=== PATIENT | female | born 1980 | race Caucasian/White ===

== ENCOUNTER 2017-02-07 21:54 | Emergency (ER) | payer MEDICAID ==
[~2017-02-07] VITALS: Ht 162.6 cm; Wt 82.0 kg
[2017-02-07 23:30] LABS: BASOPHILS % 0.6 % (0.0-2.0); EOSINOPHILS % 0.3 % (0.0-5.0); HEMATOCRIT. 38.9 % (36.0-48.0); HEMOGLOBIN. 12.5 g/dL (12.0-16.0); LYMPHOCYTES % 11.3 % (20.0-50.0); MEAN CORPUSCULAR HEMOGLOBIN 28.1 pg (28.0-32.0); MEAN CORPUSCULAR VOLUME 87.3 fL (81.0-99.0); MEAN PLATELET VOLUME 7.2 fl (7.4-10.4); MONOCYTES % 5.7 % (2.0-8.0); NEUTROPHILS % 82.1 % (40.0-76.0); PLATELET 467 x1000/uL (130-400); RED BLOOD CELL COUNT 4.45 mill/uL (4.2-5.4); RED CELL DISTRIBUTION WIDTH 17.9 % (11.6-14.6)
[2017-02-07] MEDS ORDERED: HALOPERIDOL LACTATE 5MG/ML VIAL IM STA (23:31)
[2017-02-07] MEDS ORDERED: LORAZEPAM 2MG/ML CPJ IM STA (23:31)
[2017-02-07 23:41] LABS: CARBON DIOXIDE 27 mEq/L (21-32); CHLORIDE 108 mEq/L (98-107); ETHANOL BLOOD < 10 mg/dL
[2017-02-07 23:49] LABS: AMMONIA 30 uMol/L (<32)
[2017-02-08] MEDS ORDERED: ONDANSETRON HCL 4MG/2ML VIAL IV ONE (00:15)
[2017-02-08] MEDS ORDERED: DIPHENHYDRAMINE 50MG/ML VIAL IV ONE (00:15)
[2017-02-08] MEDS ORDERED: SODIUM CHLORIDE 0.9% 1,000 ML IV ONE ×2 (00:15→05:45)
[2017-02-08] MEDS ORDERED: LORAZEPAM 2MG/ML CPJ IV ONE ×2 (02:15→06:00)
[2017-02-08] MEDS ORDERED: MORPHINE SULFATE 4 MG/ML CPJ (NOT FOR IM USE) IV ONE (06:00)
[2017-02-08 07:56] LABS: KETONES URINE NEGATIVE (NEGATIVE); LEUKOCYTE ESTERASE URINE 2+ (NEGATIVE); NITRITE URINE NEGATIVE (NEGATIVE); OCCULT BLOOD URINE 3+ (NEGATIVE); PROTEIN URINE 1+ (NEGATIVE); SPECIFIC GRAVITY URINE 1.015 (1.005-1.030)
[2017-02-08 07:58] LABS: CLARITY URINE CLOUDY (CLEAR); COLOR URINE AMBER (YELLOW)
[2017-02-08 08:14] LABS: *AMPHETAMINES SCREEN URINE NEGATIVE (NEGATIVE); *BARBITURATES SCREEN URINE NEGATIVE (NEGATIVE); *COCAINE SCREEN URINE NEGATIVE (NEGATIVE); METHADONE URINE SCREEN NEGATIVE (NEGATIVE); OPIATES URINE SCREEN NEGATIVE (NEGATIVE); PHENCYCLIDINE URINE SCREEN NEGATIVE (NEGATIVE)
[2017-02-08 08:15] LABS: *BENZODIAZEPINES SCREEN URINE PRESUMTIVE POSITIVE (NEGATIVE); CANNABINOID URINE SCREEN PRESUMTIVE POSITIVE (NEGATIVE)
[2017-02-08 11:00] VITALS: BP 126/85
== END 2017-02-08 11:24 | disposition home or self-care (01) ==
LOC: ER 21:54
DX: R41.82 Altered mental status, unspecified (principal); E87.6 Hypokalemia; D72.829 Elevated white blood cell count, unspecified; S50.311A Abrasion of right elbow, initial encounter; E66.9 Obesity, unspecified; Z68.31 Body mass index [BMI] 31.0-31.9, adult; Z78.1 Physical restraint status; Z53.29 Procedure and treatment not carried out because of patient's decision for other reasons; X58.XXXA Exposure to other specified factors, initial encounter; Y93.89 Activity, other specified; Y92.018 Other place in single-family (private) house as the place of occurrence of the external cause
CPT/HCPCS: 36415; 70450; 71045; 80053; 80305; 80307; 80329; 81001; 82140; 82962; 84702; 85025; 87040; 96361; 96372; 96374; 96375; 96376; 99285; G0482; J1200; J1630; J2060; J2405; J7030; Z7610

== ENCOUNTER 2017-08-13 16:15 | Inpatient (IN) | payer MEDICAID ==
[~2017-08-13] VITALS: Ht 157.5 cm; Wt 117.5 kg
[2017-08-13] MEDS ORDERED: ONDANSETRON HCL 4MG/2ML VIAL IV STA (19:27)
[2017-08-13] MEDS ORDERED: FAMOTIDINE 20MG/2ML VIAL IV STA (19:27)
[2017-08-13] MEDS ORDERED: SODIUM CHLORIDE 0.9% 1,000 ML IV ONE (19:27)
[2017-08-13] MEDS ORDERED: MORPHINE SULFATE 4 MG/ML CPJ (NOT FOR IM USE) IV STA (19:27)
[2017-08-13 20:23] LABS: HEMATOCRIT. 31.1 % (36.0-48.0); LYMPHOCYTES % 24.3 % (20.0-50.0); MEAN CORPUSCULAR HEMOGLOBIN 26.4 pg (28.0-32.0); MEAN CORPUSCULAR VOLUME 82.2 fL (81.0-99.0); MONOCYTES % 10.9 % (2.0-8.0); NEUTROPHILS % 62.8 % (40.0-76.0); PLATELET 413 x1000/uL (130-400); RED BLOOD CELL COUNT 3.78 mill/uL (4.2-5.4); RED CELL DISTRIBUTION WIDTH 18.1 % (11.6-14.6)
[2017-08-13 20:27] LABS: CHLORIDE 105 mEq/L (98-107)
[2017-08-13 20:29] LABS: INR 1.4; PROTHROMBIN TIME 14.7 sec (9.4-11.6)
[2017-08-13 20:31] LABS: ETHANOL BLOOD < 10 mg/dL
[2017-08-13 20:32] LABS: CLARITY URINE CLOUDY (CLEAR); COLOR URINE YELLOW (YELLOW); KETONES URINE TRACE (NEGATIVE); LEUKOCYTE ESTERASE URINE 2+ (NEGATIVE); NITRITE URINE NEGATIVE (NEGATIVE); OCCULT BLOOD URINE 1+ (NEGATIVE); PROTEIN URINE 1+ (NEGATIVE); UROBILINOGEN URINE 0.2 E.U./dL (0.2-1.0)
[2017-08-13] MEDS ORDERED: PIPERACILLIN/TAZ 3.375G PREMIX 50 ML IV ONE (20:45)
[2017-08-13] MEDS ORDERED: SODIUM CHLORIDE 0.9% 1000ML BAG (SEPSIS BOLUS) IV ONE (20:45)
[2017-08-13 20:47] LABS: *AMPHETAMINES SCREEN URINE NEGATIVE (NEGATIVE); *BARBITURATES SCREEN URINE NEGATIVE (NEGATIVE); *BENZODIAZEPINES SCREEN URINE NEGATIVE (NEGATIVE); *COCAINE SCREEN URINE NEGATIVE (NEGATIVE); METHADONE URINE SCREEN NEGATIVE (NEGATIVE); PHENCYCLIDINE URINE SCREEN NEGATIVE (NEGATIVE)
[2017-08-13 20:48] LABS: CANNABINOID URINE SCREEN NEGATIVE (NEGATIVE)
[2017-08-13 20:51] LABS: OPIATES URINE SCREEN PRESUMTIVE POSITIVE (NEGATIVE)
[2017-08-13 20:52] LABS: HCG SCREEN NEGATIVE
[2017-08-14] VITALS (7 sets, daily range): BP systolic 81–113; BP diastolic 33–55
[2017-08-14] MEDS: HYDROCODONE/ACETAMINOPHEN 5/325MG TABLET PO PRN (02:54)
[2017-08-14] MEDS ORDERED: LORAZEPAM 0.5MG TABLET PO PRN (10:30)
[2017-08-14] MEDS ORDERED: DIPHENHYDRAMINE 50MG/ML VIAL IV PRN (10:30)
[2017-08-14] MEDS ORDERED: GUAIFENESIN 200MG/10ML SUGAR FREE UDC PO PRN (10:30)
[2017-08-14] MEDS ORDERED: CLONIDINE 0.1MG TABLET PO PRN (10:30)
[2017-08-14] MEDS ORDERED: ACETAMINOPHEN 650MG/20.3ML UDC GT PRN (10:30)
[2017-08-14] MEDS ORDERED: ACETAMINOPHEN 325MG TABLET PO PRN (10:30)
[2017-08-14] MEDS ORDERED: NA PHOS,M-B/NA PHOS,DI-BA ENEMA 118ML PR PRN (10:30)
[2017-08-14] MEDS ORDERED: MAGNESIUM/ALUMINUM HYDROXIDE/SIMETHICONE 30ML UDC PO PRN (10:30)
[2017-08-14] MEDS ORDERED: ACETAMINOPHEN 650MG SUPP PR PRN (10:30)
[2017-08-14] MEDS ORDERED: DOCUSATE SODIUM 100MG CAPSULE PO PRN (10:30)
[2017-08-14] MEDS ORDERED: ONDANSETRON HCL 4MG/2ML VIAL IV PRN (10:30)
[2017-08-14] MEDS ORDERED: POTASSIUM CHLORIDE 20MEQ/PACKET PO NR (11:00)
[2017-08-14] MEDS ORDERED: SODIUM CHLORIDE 0.9% 500 ML IV NR (11:00)
[2017-08-14 12:12] LABS: BG BASE EXCESS -8.7 mmol/L (-2.0-2.0); BG CARBOXYHEMOGLOBIN 0.3 % (0.5-1.5); BG DEOXYHEMOGLOBIN 7.7 % (0.0-5.0); BG FRACTION INSPIRED OXYGEN 21; BG HCO3 ACT 16.2 mmol/L (22.0-26.0); BG METHEMOGLOBIN 0.3 % (0.0-1.5); BG OXYGEN SATURATION 92.3 % (92.0-98.5); BG OXYHEMOGLOBIN 91.7 % (94.0-97.0); BG PCO2 31.5 mmHg (35.0-45.0); BG PO2 71.5 mmHg (75.0-100.0); BG SAMPLE SITE RIGHT BRACHIAL; BG TOTAL HEMOGLOBIN 9.5 g/dL (12.0-18.0); BG VENT MODE ROOM AIR
[2017-08-14] MEDS ORDERED: VANCOMYCIN 2,000 MG in DEXT 5% WATER 500 ML IV NR (12:30)
[2017-08-14] MEDS: PIPERACILLIN/TAZ 3.375G PREMIX 50 ML IV SCH ×2 (13:06→21:19)
[2017-08-14] MEDS: IPRATROPIUM/ALBUTEROL 0.5-3(2.5)MG/3ML NEB INH SCH ×2 (14:21→20:49)
[2017-08-14] MEDS: HYDROCODONE/ACETAMINOPHEN 10/325MG TABLET PO PRN ×2 (15:14→21:12)
[2017-08-14 16:08] LABS: AMMONIA 39 uMol/L (<32)
[2017-08-14 16:12] LABS: CREATINE KINASE 63 IU/L (26-192)
[2017-08-14 16:14] LABS: CREATINE KINASE MB FRACTION 1.4 ng/mL (0.5-3.6)
[2017-08-15] VITALS (13 sets, daily range): BP systolic 96–135; BP diastolic 44–70
[2017-08-15] MEDS: IPRATROPIUM/ALBUTEROL 0.5-3(2.5)MG/3ML NEB INH SCH ×4 (02:50→21:54)
[2017-08-15] MEDS: HYDROCODONE/ACETAMINOPHEN 10/325MG TABLET PO PRN ×3 (05:12→21:09)
[2017-08-15] MEDS: PIPERACILLIN/TAZ 3.375G PREMIX 50 ML IV SCH ×3 (05:25→21:10)
[2017-08-15 06:26] LABS: HEMATOCRIT. 27.9 % (36.0-48.0); HEMOGLOBIN. 9.2 g/dL (12.0-16.0); MEAN CORPUSCULAR HEMOGLOBIN 27.1 pg (28.0-32.0); MEAN CORPUSCULAR VOLUME 82.3 fL (81.0-99.0); MEAN PLATELET VOLUME 8.2 fl (7.4-10.4); PLATELET 354 x1000/uL (130-400); RED CELL DISTRIBUTION WIDTH 18.8 % (11.6-14.6)
[2017-08-15 06:33] LABS: CHLORIDE 109 mEq/L (98-107)
[2017-08-15 06:42] LABS: PHOSPHORUS 4.8 mg/dL (2.5-4.9)
[2017-08-15 06:43] LABS: LDL CHOLESTEROL 19 mg/dL (5-100)
[2017-08-15 06:45] LABS: HDL CHOLESTEROL 10 mg/dL (40-59)
[2017-08-15 06:47] LABS: T4 FREE 0.97 ng/dL (0.76-1.46)
[2017-08-15 12:54] LABS: PLATELET ESTIMATE NORMAL
[2017-08-15] MEDS ORDERED: VANCOMYCIN 1250MG in DEXTROSE 5% WATER 250ML IV SCH (13:00)
[2017-08-15] MEDS ORDERED: POTASSIUM CHLORIDE 20MEQ/PACKET PO NR (13:30)
[2017-08-15] MEDS: LACTULOSE 20G/30ML UDC PO SCH ×2 (13:36→21:10)
[2017-08-15] MEDS: HYDROCODONE/ACETAMINOPHEN 5/325MG TABLET PO PRN (16:42)
[2017-08-15 19:28] LABS: HEPATITIS B SURFACE ANTIGEN NEGATIVE
[2017-08-15 19:56] LABS: HEPATITIS B CORE AB IGM NEGATIVE
[2017-08-15 19:57] LABS: HEPATITIS A AB IGM NEGATIVE (NEGATIVE)
[2017-08-15 19:58] LABS: MONOTEST NEGATIVE (NEGATIVE)
[2017-08-16] VITALS (10 sets, daily range): BP systolic 93–110; BP diastolic 47–67
[2017-08-16] MEDS: HYDROCODONE/ACETAMINOPHEN 10/325MG TABLET PO PRN ×5 (00:57→21:08)
[2017-08-16] MEDS: IPRATROPIUM/ALBUTEROL 0.5-3(2.5)MG/3ML NEB INH SCH ×4 (02:16→21:52)
[2017-08-16] MEDS ORDERED: VANCOMYCIN 1250MG in DEXTROSE 5% WATER 250ML IV SCH ×2 (06:00→18:00)
[2017-08-16] MEDS: LACTULOSE 20G/30ML UDC PO SCH ×3 (06:26→21:13)
[2017-08-16] MEDS: PIPERACILLIN/TAZ 3.375G PREMIX 50 ML IV SCH ×2 (06:27→14:14)
[2017-08-16 07:07] LABS: CHLORIDE 110 mEq/L (98-107)
[2017-08-16 07:15] LABS: PHOSPHORUS 4.5 mg/dL (2.5-4.9)
[2017-08-16 07:17] LABS: HEMATOCRIT. 26.6 % (36.0-48.0); HEMOGLOBIN. 8.8 g/dL (12.0-16.0); MEAN CORPUSCULAR HEMOGLOBIN 26.8 pg (28.0-32.0); MEAN CORPUSCULAR VOLUME 81.3 fL (81.0-99.0); MEAN PLATELET VOLUME 7.9 fl (7.4-10.4); PLATELET 376 x1000/uL (130-400); RED BLOOD CELL COUNT 3.28 mill/uL (4.2-5.4); RED CELL DISTRIBUTION WIDTH 18.2 % (11.6-14.6)
[2017-08-16] MEDS ORDERED: MAGNESIUM 2 G PREMIX 50 ML IV NR (13:00)
[2017-08-16] MEDS ORDERED: MAGNESIUM SULFATE 2 GM in DEXTROSE 5% WATER 50 ML IV ONE (13:00)
[2017-08-16] MEDS: POTASSIUM CHLORIDE 20MEQ TABLET SR PO SCH (13:07)
[2017-08-16 16:30] LABS: PLATELET ESTIMATE NORMAL
[2017-08-16] MEDS: FLUCONAZOLE 400MG/200ML BAG 200 ML IV SCH (17:59)
[2017-08-17 00:21] VITALS: BP 101/77
[2017-08-17] MEDS: HYDROCODONE/ACETAMINOPHEN 10/325MG TABLET PO PRN ×2 (01:08→05:35)
[2017-08-17] MEDS: IPRATROPIUM/ALBUTEROL 0.5-3(2.5)MG/3ML NEB INH SCH ×3 (01:10→08:03)
[2017-08-17 04:00] VITALS: BP 115/73
[2017-08-17] MEDS: LACTULOSE 20G/30ML UDC PO SCH ×4 (05:31→21:22)
[2017-08-17 06:57] LABS: CHLORIDE 108 mEq/L (98-107)
[2017-08-17 06:58] LABS: HEMATOCRIT. 26.9 % (36.0-48.0); HEMOGLOBIN. 8.9 g/dL (12.0-16.0); MEAN CORPUSCULAR HEMOGLOBIN 27.1 pg (28.0-32.0); MEAN CORPUSCULAR VOLUME 81.7 fL (81.0-99.0); MEAN PLATELET VOLUME 7.7 fl (7.4-10.4); PLATELET 416 x1000/uL (130-400); RED BLOOD CELL COUNT 3.29 mill/uL (4.2-5.4); RED CELL DISTRIBUTION WIDTH 18.8 % (11.6-14.6)
[2017-08-17 07:07] LABS: PHOSPHORUS 4.4 mg/dL (2.5-4.9)
[2017-08-17] MEDS: POTASSIUM CHLORIDE 20MEQ TABLET SR PO SCH (08:20)
[2017-08-17 08:42] VITALS: BP 106/65
[2017-08-17] MEDS ORDERED: HYDROCODONE/ACETAMINOPHEN 5/325MG TABLET PO PRN (10:00)
[2017-08-17] MEDS ORDERED: MORPHINE SULFATE 4 MG/ML CPJ (NOT FOR IM USE) IV PRN (10:15)
[2017-08-17] MEDS: MAGNESIUM OXIDE 400MG TABLET PO SCH ×2 (10:51→20:15)
[2017-08-17] MEDS: MORPHINE SULFATE 4 MG/ML CPJ (NOT FOR IM USE) IV PRN ×2 (10:52→15:21)
[2017-08-17 11:00] LABS: PLATELET ESTIMATE SLIGHTLY INCREASED
[2017-08-17 12:00] VITALS: BP 98/51
[2017-08-17 16:16] VITALS: BP 105/56
[2017-08-17] MEDS: FLUCONAZOLE 400MG/200ML BAG 200 ML IV SCH (17:54)
[2017-08-17] MEDS ORDERED: FUROSEMIDE 40MG TABLET PO SCH (19:45)
[2017-08-17] MEDS: SPIRONOLACTONE 50MG TABLET PO NR ×2 (20:00→22:02)
[2017-08-17] MEDS ORDERED: CLOTRIMAZOLE/BETAMETHASONE 1/0.05% CREAM 15GM TOP SCH (21:00)
[2017-08-18] VITALS: BP 109/59
[2017-08-18] MEDS: IPRATROPIUM/ALBUTEROL 0.5-3(2.5)MG/3ML NEB INH SCH (01:12)
[2017-08-18 04:07] VITALS: BP 101/55
[2017-08-18] MEDS ORDERED: SPIRONOLACTONE 25MG TABLET PO SCH (09:00)
== END 2017-08-18 04:45 | disposition left against medical advice (07) | DRG 720 ==
LOC: ER 16:15 → 6EST 22:24 → EDBEDREQ 22:29 → EDBEDREQTM 22:29 → ENRESERV 08-14 07:10 → 3WST 08-14 12:17 → 8WST 08-16 11:07
PROVIDERS: ADMIT Internal Medicine; ATTEND Internal Medicine
DX: A41.9 Sepsis, unspecified organism (principal); N17.0 Acute kidney failure with tubular necrosis; E43 Unspecified severe protein-calorie malnutrition; E87.2 Acidosis; K65.9 Peritonitis, unspecified; I27.20 Pulmonary hypertension, unspecified; Z68.42 Body mass index [BMI] 45.0-49.9, adult; I11.9 Hypertensive heart disease without heart failure; R21 Rash and other nonspecific skin eruption; E88.09 Other disorders of plasma-protein metabolism, not elsewhere classified; D64.9 Anemia, unspecified; K70.31 Alcoholic cirrhosis of liver with ascites; E83.42 Hypomagnesemia; E66.01 Morbid (severe) obesity due to excess calories; K76.0 Fatty (change of) liver, not elsewhere classified; I07.1 Rheumatic tricuspid insufficiency; A08.4 Viral intestinal infection, unspecified; K75.9 Inflammatory liver disease, unspecified; E86.0 Dehydration; I89.0 Lymphedema, not elsewhere classified; L30.9 Dermatitis, unspecified; F17.210 Nicotine dependence, cigarettes, uncomplicated; N39.0 Urinary tract infection, site not specified; Z53.21 Procedure and treatment not carried out due to patient leaving prior to being seen by health care provider; F10.20 Alcohol dependence, uncomplicated; E87.6 Hypokalemia; T50.991A Poisoning by other drugs, medicaments and biological substances, accidental (unintentional), initial encounter; Z90.49 Acquired absence of other specified parts of digestive tract; Z82.49 Family history of ischemic heart disease and other diseases of the circulatory system; Z83.3 Family history of diabetes mellitus; Y92.89 Other specified places as the place of occurrence of the external cause
CPT/HCPCS: 36415; 36600; 71045; 74176; 76700; 80048; 80053; 80061; 80202; 80305; 81003; 82140; 82270; 82375; 82550; 82553; 82805; 83605; 83615; 83625; 83690; 83735; 83880; 84100; 84145; 84439; 84443; 84481; 84484; 84703; 85025; 85610; 86308; 86705; 86709; 86803; 87040; 87086; 87340; 93306; 93970; 94640; 96361; 96365; 96375; 99285; C1893; G0482; J1450; J2270; J2405; J2543; J3370; J3475; J3490; J7030; J7040; J7060; J7620

== ENCOUNTER 2017-08-25 20:48 | Emergency (ER) | payer MEDICAID ==
[~2017-08-25] VITALS: Ht 157.5 cm; Wt 95.0 kg
[2017-08-26] MEDS ORDERED: ONDANSETRON HCL 4MG/2ML VIAL IV STA (01:28)
[2017-08-26] MEDS ORDERED: MORPHINE SULFATE 4 MG/ML CPJ (NOT FOR IM USE) IV STA (01:28)
[2017-08-26] MEDS ORDERED: SODIUM CHLORIDE 0.9% 1,000 ML IV ONE (01:28)
[2017-08-26 02:08] LABS: EOSINOPHILS % 1.4 % (0.0-5.0); HEMATOCRIT. 32.2 % (36.0-48.0); HEMOGLOBIN. 10.5 g/dL (12.0-16.0); LYMPHOCYTES % 27.5 % (20.0-50.0); MEAN CORPUSCULAR HEMOGLOBIN 26.9 pg (28.0-32.0); MEAN CORPUSCULAR VOLUME 82.3 fL (81.0-99.0); MEAN PLATELET VOLUME 8.2 fl (7.4-10.4); MONOCYTES % 10.3 % (2.0-8.0); NEUTROPHILS % 59.8 % (40.0-76.0); PLATELET 390 x1000/uL (130-400); RED BLOOD CELL COUNT 3.91 mill/uL (4.2-5.4); RED CELL DISTRIBUTION WIDTH 19.3 % (11.6-14.6)
[2017-08-26 02:09] LABS: CHLORIDE 100 mEq/L (98-107)
[2017-08-26 02:13] LABS: ETHANOL BLOOD < 10 mg/dL
[2017-08-26 02:27] LABS: HCG SCREEN NEGATIVE
[2017-08-26] MEDS ORDERED: POTASSIUM CHLORIDE INJ 40 MEQ in DEXT 5% WATER 500 ML IV ONE (02:45)
[2017-08-26] MEDS ORDERED: POTASSIUM CHLORIDE 20MEQ TABLET SR PO ONE (02:45)
[2017-08-26] MEDS ORDERED: KCL 20MEQ/100ML PREMIX 100 ML IV SCH (03:00)
[2017-08-26 03:22] LABS: CLARITY URINE CLEAR (CLEAR); COLOR URINE YELLOW (YELLOW); KETONES URINE TRACE (NEGATIVE); LEUKOCYTE ESTERASE URINE 3+ (NEGATIVE); NITRITE URINE NEGATIVE (NEGATIVE); OCCULT BLOOD URINE NEGATIVE (NEGATIVE); PROTEIN URINE NEGATIVE (NEGATIVE); UROBILINOGEN URINE 0.2 E.U./dL (0.2-1.0)
[2017-08-26] MEDS ORDERED: MORPHINE SULFATE 4 MG/ML CPJ (NOT FOR IM USE) IV ONE (03:30)
[2017-08-26 04:10] LABS: *AMPHETAMINES SCREEN URINE NEGATIVE (NEGATIVE); *BARBITURATES SCREEN URINE NEGATIVE (NEGATIVE); *BENZODIAZEPINES SCREEN URINE NEGATIVE (NEGATIVE)
[2017-08-26 04:11] LABS: *COCAINE SCREEN URINE NEGATIVE (NEGATIVE); CANNABINOID URINE SCREEN NEGATIVE (NEGATIVE); METHADONE URINE SCREEN NEGATIVE (NEGATIVE); OPIATES URINE SCREEN NEGATIVE (NEGATIVE); PHENCYCLIDINE URINE SCREEN NEGATIVE (NEGATIVE)
[2017-08-26 07:35] VITALS: BP 96/53
== END 2017-08-26 07:52 | disposition home or self-care (01) ==
LOC: ER 20:48
DX: N39.0 Urinary tract infection, site not specified (principal); E87.6 Hypokalemia; I10 Essential (primary) hypertension; F17.200 Nicotine dependence, unspecified, uncomplicated; R11.2 Nausea with vomiting, unspecified; Z79.899 Other long term (current) drug therapy
CPT/HCPCS: 36415; 74176; 80053; 80305; 81003; 81025; 83690; 83735; 84703; 85025; 93971; 96361; 96374; 96375; 99285; G0482; J2270; J2405; J3480; J7030; Z7610; J7060

== ENCOUNTER 2023-03-02 15:56 | Emergency (ER) | payer MEDICAID ==
[~2023-03-02] VITALS: Ht 167.6 cm; Wt 75.0 kg
[2023-03-02 16:05] VITALS: TEMP 98.4; O2SAT 100
[2023-03-02] MEDS ORDERED: SODIUM CHLORIDE 0.9% 1,000 ML IV ONE (16:45)
[2023-03-02 17:46] LABS: BASOPHILS % 1.2 % (0.0-2.0); DIFFERENTIAL COMMENT 0; EOSINOPHILS % 3.1 % (0.0-5.0); HEMATOCRIT. 24.8 % (36.0-48.0); HEMOGLOBIN. 7.6 g/dL (12.0-16.0); LYMPHOCYTES % 17.7 % (20.0-50.0); MEAN CORPUSCULAR HEMOGLOBIN 22.5 pg (28.0-32.0); MEAN CORPUSCULAR HGB CONC 30.5 g/dL (31.0-37.0); MEAN CORPUSCULAR VOLUME 73.8 fL (81.0-99.0); MEAN PLATELET VOLUME 7.4 fl (7.4-10.4); MONOCYTES % 9.6 % (2.0-8.0); NEUTROPHILS % 68.4 % (40.0-76.0); PLATELET 301 x1000/uL (130-400); RED BLOOD CELL COUNT 3.36 mill/uL (4.2-5.4); RED CELL DISTRIBUTION WIDTH 19.4 % (11.6-14.6); WHITE BLOOD COUNT 3.9 x1000/uL (4.5-11.0)
[2023-03-02 17:57] LABS: HCG SCREEN NEGATIVE
[2023-03-02 18:07] LABS: ALANINE AMINOTRANSFERASE 17 IU/L (10-49); ALBUMIN 3.1 g/dL (3.2-4.8); ASPARTATE AMINOTRANSFERASE 27 IU/L (<34); BILIRUBIN TOTAL 0.5 mg/dL (0.1-1.0); CALCIUM 8.1 mg/dL (8.7-10.4); CARBON DIOXIDE 23 mEq/L (21-32); CHLORIDE 105 mEq/L (98-107); CREATININE 0.5 mg/dL (0.6-1.0); GLUCOSE 127 mg/dL (70-105); POTASSIUM 3.3 mEq/L (3.5-5.1); PROTEIN TOTAL 6.2 g/dL (6.0-8.3); SODIUM 139 mEq/L (136-145); TROPONIN I HIGH SENSITIVITY 6 ng/L (3.0-34); UREA NITROGEN BLOOD 8 mg/dL (9-23)
[2023-03-02] MEDS ORDERED: POTASSIUM CHLORIDE 20MEQ TABLET SR PO NR (18:23)
[2023-03-02 18:45] VITALS: BP 95/58; PULSE 88; RESP 14
[2023-03-02] MEDS ORDERED: FERR324T4 MT (20:07)
== END 2023-03-02 22:45 | disposition home or self-care (01) ==
LOC: ER 16:53
DX: R55 Syncope and collapse (principal); D64.9 Anemia, unspecified; F31.9 Bipolar disorder, unspecified; I10 Essential (primary) hypertension; Z90.49 Acquired absence of other specified parts of digestive tract
CPT/HCPCS: 80053; 84703; 85025; 84484; 36415; 71045; 96360; 99284; J7030; Z7610